=== PATIENT | female | born 1970 | race Caucasian/White ===

== ENCOUNTER 2023-08-16 11:36 | Inpatient (IN) | payer OTHER ==
[2023-08-16 13:15] LABS: HEMATOCRIT 23.4 % (32.4-45.2); HEMOGLOBIN 7.8 GM/dL (10.7-15.3); MCH 34.5 pg (25.7-33.7); MCHC 33.3 g/dl (32.0-36.0); MEAN CELL VOLUME 103.5 fl (80-96); MEAN PLT VOLUME 6.4 fl (7.5-11.1); PLATELET COUNT 227 10^3/uL (134-434); RBC 2.26 M/mm3 (3.60-5.2); RDW 15.8 % (11.6-15.6)
[2023-08-16 13:48] LABS: BLOOD UREA NITROGEN 79.9 mg/dL (7-18)
[2023-08-16 13:52] LABS: BILIRUBIN,TOTAL 0.3 mg/dL (0.2-1)
[2023-08-16 13:53] LABS: TOT PROT 5.3 g/dl (6.4-8.2)
[2023-08-16 13:55] LABS: CREATININE 3.6 mg/dL (0.55-1.3)
[2023-08-16] MEDS ORDERED: VANCOMYCIN 1 GRAM (PRE-DOCKED) 1,000 MG/250 ML BAG IVPB ONE (14:16)
[2023-08-16] MEDS ORDERED: ceFAZolin SODIUM 1 GM VIAL ONE (14:16)
[2023-08-16] MEDS: CEFAZOLIN 1 GM in DEXTROSE 5%-WATER - 50 ML IVPB ONE (14:25)
[2023-08-16 14:40] LABS: ANISOCYTOSIS 1+; MACROCYTOSIS 1+
[2023-08-16] MEDS: VANCOMYCIN 1,000 MG in DEXTROSE 5%-WATER - 250 ML IVPB ONE (14:45)
[2023-08-16] MEDS ORDERED: PIPERACILLIN/TAZOB 2.25 GM 2.25 GM in DEXTROSE 5%-WATER - 50 ML IVPB SCH (16:45)
[2023-08-16 17:16] VITALS: BMI 39.6
[2023-08-16] MEDS: TORSEMIDE 20 MG TABLET (FP) PO SCH (17:50)
[2023-08-16] MEDS: PIPERACILLIN/TAZOB 2.25 GM 2.25 GM in DEXTROSE 5%-WATER - 50 ML IVPB SCH (17:50)
[2023-08-16] MEDS: HEPARIN NA (PORCINE) 5,000 UNITS/ML 1ML VIAL SQ SCH (21:32)
[2023-08-16] MEDS: HALOPERIDOL 5 MG TABLET PO SCH (21:33)
[2023-08-16] MEDS: DIVALPROEX NA *ER* EXTEND REL 500 MG TABLET.SA (FP) PO SCH (21:33)
[2023-08-16] MEDS: lamoTRIgine 25 MG TABLET PO SCH (21:33)
[2023-08-17] MEDS: DIVALPROEX NA *ER* EXTEND REL 500 MG TABLET.SA (FP) PO SCH (06:00)
[2023-08-17] MEDS: SODIUM BICARBONATE 650 MG TABLET PO SCH (06:03)
[2023-08-17 07:45] LABS: HEMATOCRIT 21.5 % (32.4-45.2); HEMOGLOBIN 7.1 GM/dL (10.7-15.3); MCH 34.4 pg (25.7-33.7); MCHC 33.1 g/dl (32.0-36.0); MEAN CELL VOLUME 103.8 fl (80-96); MEAN PLT VOLUME 6.6 fl (7.5-11.1); PLATELET COUNT 235 10^3/uL (134-434); RBC 2.07 M/mm3 (3.60-5.2); RDW 15.8 % (11.6-15.6); RETICULOCYTES 2.58 % (0.5-1.5); WHITE BLOOD COUNT 12.4 K/mm3 (4.0-10.0)
[2023-08-17 07:57] LABS: POTASSIUM 3.1 mmol/L (3.5-5.1)
[2023-08-17 08:00] LABS: ALBUMIN 1.8 g/dl (3.4-5.0); CALCIUM 8.8 mg/dL (8.5-10.1)
[2023-08-17] MEDS ORDERED: VANCOMYCIN HCL 1,500 MG in DEXTROSE 5%-WATER - 500 ML IVPB SCH (08:00)
[2023-08-17 08:03] LABS: PHOSPHOROUS 2.5 mg/dL (2.5-4.9)
[2023-08-17 08:04] LABS: BILIRUBIN,TOTAL 0.4 mg/dL (0.2-1); CREATININE 3.4 mg/dL (0.55-1.3); TOT PROT 4.8 g/dl (6.4-8.2)
[2023-08-17] MEDS: VANCOMYCIN PREMIX 1.5 GM 1,500 MG/300 ML BAG IVPB SCH (08:32)
[2023-08-17 08:59] LABS: ERYTHROCYTE SEDIMENTATION RATE 116 mm/hr (0-30)
[2023-08-17] MEDS: ACETAMINOPHEN 1000 MG/100 ML BAG IVPB ONE ×2 (09:30→15:30)
[2023-08-17] MEDS: POTASSIUM CHLORIDE ORAL LIQUID 20 MEQ/15 ML PO ONE (15:30)
[2023-08-17] MEDS: PIPERACILLIN/TAZOB 2.25 GM 2.25 GM in DEXTROSE 5%-WATER - 50 ML IVPB SCH (17:12)
[2023-08-17] MEDS: FERROUS GLUCONATE 324 MG TAB (FP) PO SCH (17:43)
[2023-08-17] MEDS: EPOETIN ALFA-EPBX 10,000 UNIT/ML VIAL SQ ONE (17:43)
[2023-08-17] MEDS: ACETAMINOPHEN 1000 MG/100 ML BAG IVPB PRN (23:19)
[2023-08-18 07:51] LABS: HEMATOCRIT 20.4 % (32.4-45.2); MCH 35.4 pg (25.7-33.7); MCHC 33.8 g/dl (32.0-36.0); MEAN CELL VOLUME 104.7 fl (80-96); MEAN PLT VOLUME 6.6 fl (7.5-11.1); PLATELET COUNT 243 10^3/uL (134-434); RBC 1.95 M/mm3 (3.60-5.2); RDW 15.5 % (11.6-15.6); WHITE BLOOD COUNT 14.5 K/mm3 (4.0-10.0)
[2023-08-18 08:04] LABS: HEMOGLOBIN 6.9 GM/dL (10.7-15.3)
[2023-08-18 08:11] LABS: POTASSIUM 3.2 mmol/L (3.5-5.1)
[2023-08-18 08:15] LABS: ALBUMIN 1.8 g/dl (3.4-5.0)
[2023-08-18 08:16] LABS: BLOOD UREA NITROGEN 68.6 mg/dL (7-18); CALCIUM 8.6 mg/dL (8.5-10.1)
[2023-08-18 08:18] LABS: CREATININE 3.5 mg/dL (0.55-1.3)
[2023-08-18 08:21] LABS: BILIRUBIN,TOTAL 0.3 mg/dL (0.2-1); TOT PROT 4.8 g/dl (6.4-8.2)
[2023-08-18] MEDS: ALLOPURINOL 100 MG TABLET (FP) PO SCH (09:26)
[2023-08-18] MEDS: CALCITRIOL 0.25 MCG CAPSULE (FP) PO SCH (09:26)
[2023-08-18] MEDS: POTASSIUM CHLORIDE ORAL LIQUID 20 MEQ/15 ML PO ONE ×2 (14:11→21:18)
[2023-08-18] MEDS: VITAMIN B COMP W-C 1 EA TABLET (NEPHRO-VITE) PO SCH (17:02)
[2023-08-18] MEDS: IRON SUCROSE INJECTION 100 MG in SODIUM CHLORIDE 95 ML IVPB ONE (19:54)
[2023-08-19] MEDS: ACETAMINOPHEN 325 MG TABLET (FP) PO ONE (06:53)
[2023-08-19 08:24] LABS: HEMOGLOBIN 9.7 GM/dL (10.7-15.3); MCH 33.6 pg (25.7-33.7); MCHC 33.4 g/dl (32.0-36.0); MEAN CELL VOLUME 100.5 fl (80-96); MEAN PLT VOLUME 6.7 fl (7.5-11.1); PLATELET COUNT 313 10^3/uL (134-434); RBC 2.88 M/mm3 (3.60-5.2); RDW 17.6 % (11.6-15.6); WHITE BLOOD COUNT 21.3 K/mm3 (4.0-10.0)
[2023-08-19 08:35] LABS: POTASSIUM 3.7 mmol/L (3.5-5.1)
[2023-08-19 08:40] LABS: BLOOD UREA NITROGEN 63.3 mg/dL (7-18); CALCIUM 9.4 mg/dL (8.5-10.1)
[2023-08-19 08:43] LABS: CREATININE 3.4 mg/dL (0.55-1.3)
[2023-08-19 08:45] LABS: BILIRUBIN,TOTAL 0.4 mg/dL (0.2-1); TOT PROT 5.5 g/dl (6.4-8.2)
[2023-08-19] MEDS: IRON SUCROSE INJECTION 100 MG in SODIUM CHLORIDE 95 ML IVPB ONE (14:20)
[2023-08-19] MEDS: PIPERACILLIN/TAZOB 3.375 GM 3.375 GM in DEXTROSE 5%-WATER - 50 ML IVPB SCH (17:31)
[2023-08-19] MEDS: VANCOMYCIN/WATER FOR INJ (PEG) 1,000 MG/200 ML BAG IVPB ONE (18:18)
[2023-08-20 09:08] LABS: HEMATOCRIT 25.8 % (32.4-45.2); HEMOGLOBIN 8.5 GM/dL (10.7-15.3); MCH 33.6 pg (25.7-33.7); MEAN CELL VOLUME 101.9 fl (80-96); MEAN PLT VOLUME 6.7 fl (7.5-11.1); PLATELET COUNT 273 10^3/uL (134-434); RBC 2.53 M/mm3 (3.60-5.2); RDW 17.7 % (11.6-15.6); WHITE BLOOD COUNT 16.4 K/mm3 (4.0-10.0)
[2023-08-20 09:22] LABS: POTASSIUM 3.1 mmol/L (3.5-5.1)
[2023-08-20 09:24] LABS: CALCIUM 8.5 mg/dL (8.5-10.1)
[2023-08-20 09:25] LABS: BLOOD UREA NITROGEN 60.2 mg/dL (7-18)
[2023-08-20 09:28] LABS: CREATININE 3.4 mg/dL (0.55-1.3)
[2023-08-20 09:29] LABS: BILIRUBIN,TOTAL 0.3 mg/dL (0.2-1); TOT PROT 4.7 g/dl (6.4-8.2)
[2023-08-20 09:38] LABS: ALBUMIN 1.5 g/dl (3.4-5.0)
[2023-08-20] MEDS: CLINDAMYCIN 900 MG PREMIX IVPB 900 MG/50 ML BAG IVPB SCH (11:27)
[2023-08-20] MEDS: POTASSIUM CHLORIDE ORAL LIQUID 20 MEQ/15 ML PO ONE (16:00)
[2023-08-20 16:33] LABS: PH,URINE 6.5 (5.0-8.0); URINE APPEARANCE CLOUDY; URINE BILIRUBIN NEGATIVE (NEGATIVE); URINE COLOR YELLOW; URINE GLUCOSE (UA) NEGATIVE (NEGATIVE); URINE KETONE NEGATIVE (NEGATIVE); URINE LEUK ESTERASE 2+ (NEGATIVE); URINE NITRITE NEGATIVE (NEGATIVE); URINE PROTEIN NEGATIVE (NEGATIVE); URINE UROBILINOGEN 0.2 mg/dL (0.2-1.0)
[2023-08-20 16:35] LABS: *STOOL FOR OCCULT BLOOD NEGATIVE (NEGATIVE)
[2023-08-20 18:46] LABS: EPI CELLS 7 /uL (0-25.1); HYALINE CASTS 1 /uL (0-3.1); URINE BACTERIA 15 /uL (0-1359); URINE RBC 20 /uL (0-23.9); URINE WBC 32 /uL (0-25.8)
[2023-08-20 18:47] LABS: YEAST FEW (NEGATIVE)
[2023-08-21 08:34] LABS: HEMATOCRIT 26.6 % (32.4-45.2); HEMOGLOBIN 8.8 GM/dL (10.7-15.3); MCH 33.7 pg (25.7-33.7); MEAN CELL VOLUME 102.4 fl (80-96); MEAN PLT VOLUME 6.9 fl (7.5-11.1); PLATELET COUNT 299 10^3/uL (134-434); RDW 16.9 % (11.6-15.6); WHITE BLOOD COUNT 18.9 K/mm3 (4.0-10.0)
[2023-08-21 08:56] LABS: POTASSIUM 3.4 mmol/L (3.5-5.1)
[2023-08-21 09:01] LABS: BLOOD UREA NITROGEN 60.6 mg/dL (7-18)
[2023-08-21 09:02] LABS: ALBUMIN 1.7 g/dl (3.4-5.0); CALCIUM 8.9 mg/dL (8.5-10.1); MAGNESIUM 2.2 mg/dL (1.8-2.4)
[2023-08-21 09:04] LABS: CREATININE 3.5 mg/dL (0.55-1.3)
[2023-08-21 09:06] LABS: BILIRUBIN,TOTAL 0.2 mg/dL (0.2-1); TOT PROT 4.9 g/dl (6.4-8.2)
[2023-08-21] MEDS: ACETAMINOPHEN 1000 MG/100 ML BAG IVPB ONE (09:26)
[2023-08-21] MEDS ORDERED: HALOPERIDOL 5 MG TABLET PO SCH (10:06)
[2023-08-21 10:09] LABS: ANISOCYTOSIS 0; MACROCYTOSIS 1+
[2023-08-21] MEDS ORDERED: KETAMINE HCL 200 MG/20 ML VIAL ONE (12:19)
[2023-08-21] MEDS ORDERED: SUCCINYLCHOLINE CHLORIDE 200 MG/10 ML SYRINGE ONE (12:19)
[2023-08-21] MEDS ORDERED: FENTANYL CITRATE/PF 50 MCG/ML VIAL ONE (12:19)
[2023-08-21] MEDS ORDERED: PROPOFOL 20 ML ONE (12:19)
[2023-08-21] MEDS ORDERED: ONDANSETRON 4 MG/2 ML VIAL ONE ×2 (12:41)
[2023-08-21] MEDS ORDERED: ACETAMINOPHEN 1000 MG/100 ML BAG IVPB PRN (15:00)
[2023-08-21] MEDS: PIPERACILLIN/TAZOB 3.375 GM 3.375 GM in DEXTROSE 5%-WATER - 50 ML IVPB SCH (15:09)
[2023-08-21] MEDS: POTASSIUM CHLORIDE ORAL LIQUID 20 MEQ/15 ML PO ONE ×2 (15:11→15:24)
[2023-08-21] MEDS: CLINDAMYCIN 900 MG PREMIX IVPB 900 MG/50 ML BAG IVPB SCH (18:05)
[2023-08-21] MEDS: ACETAMINOPHEN 1000 MG/100 ML BAG IVPB SCH (20:00)
[2023-08-21] MEDS: HEPARIN NA (PORCINE) 5,000 UNITS/ML 1ML VIAL SQ SCH (21:41)
[2023-08-21] MEDS: HALOPERIDOL 5 MG TABLET PO SCH (21:42)
[2023-08-21] MEDS: DIVALPROEX NA *ER* EXTEND REL 500 MG TABLET.SA (FP) PO SCH (21:42)
[2023-08-21] MEDS: lamoTRIgine 25 MG TABLET PO SCH (21:42)
[2023-08-22] MEDS: SODIUM CHLORIDE 0.9% 500 ML INFUS.BAG IV ONE (00:54)
[2023-08-22] MEDS: TORSEMIDE 20 MG TABLET (FP) PO SCH (05:33)
[2023-08-22] MEDS: DIVALPROEX NA *ER* EXTEND REL 500 MG TABLET.SA (FP) PO SCH (06:14)
[2023-08-22 09:07] LABS: HEMATOCRIT 24.1 % (32.4-45.2); HEMOGLOBIN 7.9 GM/dL (10.7-15.3); MCH 33.9 pg (25.7-33.7); MCHC 32.8 g/dl (32.0-36.0); MEAN CELL VOLUME 103.2 fl (80-96); PLATELET COUNT 299 10^3/uL (134-434); RBC 2.34 M/mm3 (3.60-5.2); RDW 16.7 % (11.6-15.6); WHITE BLOOD COUNT 19.8 K/mm3 (4.0-10.0)
[2023-08-22 09:29] LABS: POTASSIUM 3.7 mmol/L (3.5-5.1)
[2023-08-22 09:41] LABS: ALBUMIN 1.8 g/dl (3.4-5.0)
[2023-08-22 09:44] LABS: BLOOD UREA NITROGEN 55.8 mg/dL (7-18); CALCIUM 8.7 mg/dL (8.5-10.1); CREATININE 3.7 mg/dL (0.55-1.3)
[2023-08-22 09:45] LABS: BILIRUBIN,TOTAL 0.2 mg/dL (0.2-1)
[2023-08-22] MEDS: CALCITRIOL 0.25 MCG CAPSULE (FP) PO SCH (09:54)
[2023-08-22] MEDS: ALLOPURINOL 100 MG TABLET (FP) PO SCH (09:54)
[2023-08-22] MEDS: VITAMIN B COMP W-C 1 EA TABLET (NEPHRO-VITE) PO SCH (09:55)
[2023-08-22] MEDS: FERROUS GLUCONATE 324 MG TAB (FP) PO SCH (09:55)
[2023-08-22] MEDS: oxyCODONE HCL 5 MG TABLET PO PRN (14:31)
[2023-08-23 04:26] VITALS: RESP 18
[2023-08-23] MEDS: ACETAMINOPHEN 1000 MG/100 ML BAG IVPB ONE (16:26)
[2023-08-23] MEDS: ACETAMINOPHEN 325 MG TABLET (FP) PO SCH (22:00)
[2023-08-24 09:16] LABS: MCH 33.6 pg (25.7-33.7); MEAN CELL VOLUME 101.9 fl (80-96); MEAN PLT VOLUME 6.8 fl (7.5-11.1); PLATELET COUNT 291 10^3/uL (134-434); RBC 2.06 M/mm3 (3.60-5.2); RDW 15.6 % (11.6-15.6); WHITE BLOOD COUNT 16.9 K/mm3 (4.0-10.0)
[2023-08-24] MEDS: EPOETIN ALFA-EPBX 10,000 UNIT/ML VIAL SQ ONE (09:19)
[2023-08-24 09:22] LABS: HEMOGLOBIN 6.9 GM/dL (10.7-15.3)
[2023-08-24] MEDS: POVIDONE-IODINE 10% SOLN 118 ML BOTTLE TP ONE (09:45)
[2023-08-24 09:59] LABS: POTASSIUM 3.2 mmol/L (3.5-5.1)
[2023-08-24 09:59] LABS: ERYTHROCYTE SEDIMENTATION RATE 116 mm/hr (0-30)
[2023-08-24 10:10] LABS: CALCIUM 8.8 mg/dL (8.5-10.1)
[2023-08-24 10:11] LABS: ALBUMIN 1.8 g/dl (3.4-5.0); BLOOD UREA NITROGEN 50.7 mg/dL (7-18)
[2023-08-24 10:14] LABS: CREATININE 3.8 mg/dL (0.55-1.3)
[2023-08-24 10:15] LABS: BILIRUBIN,TOTAL 0.2 mg/dL (0.2-1); TOT PROT 4.8 g/dl (6.4-8.2)
[2023-08-24] MEDS: CEFTRIAXONE 2 GM in DEXTROSE 5%-WATER 100 ML IVPB ONE ×2 (14:09→17:03)
[2023-08-24] MEDS: POTASSIUM CHLORIDE ORAL LIQUID 20 MEQ/15 ML PO ONE (14:27)
[2023-08-25 09:52] LABS: HEMATOCRIT 24.5 % (32.4-45.2); HEMOGLOBIN 8.2 GM/dL (10.7-15.3); MCHC 33.5 g/dl (32.0-36.0); MEAN CELL VOLUME 98.6 fl (80-96); MEAN PLT VOLUME 6.8 fl (7.5-11.1); PLATELET COUNT 290 10^3/uL (134-434); RBC 2.49 M/mm3 (3.60-5.2); RDW 18.3 % (11.6-15.6); WHITE BLOOD COUNT 15.9 K/mm3 (4.0-10.0)
[2023-08-25 10:07] LABS: POTASSIUM 3.5 mmol/L (3.5-5.1)
[2023-08-25 10:12] LABS: ALBUMIN 1.8 g/dl (3.4-5.0); BLOOD UREA NITROGEN 46.7 mg/dL (7-18); CALCIUM 9.3 mg/dL (8.5-10.1)
[2023-08-25 10:15] LABS: CREATININE 3.8 mg/dL (0.55-1.3)
[2023-08-25 10:16] LABS: BILIRUBIN,TOTAL 0.2 mg/dL (0.2-1)
[2023-08-25 10:17] LABS: TOT PROT 4.9 g/dl (6.4-8.2)
[2023-08-25] MEDS: CEFTRIAXONE 2 GM in DEXTROSE 5%-WATER 100 ML IVPB SCH (10:36)
[2023-08-25 11:07] LABS: MACROCYTOSIS 1+
[2023-08-26 10:15] LABS: HEMATOCRIT 25.8 % (32.4-45.2); HEMOGLOBIN 8.7 GM/dL (10.7-15.3); MCH 33.5 pg (25.7-33.7); MCHC 33.7 g/dl (32.0-36.0); MEAN CELL VOLUME 99.5 fl (80-96); PLATELET COUNT 297 10^3/uL (134-434); RBC 2.59 M/mm3 (3.60-5.2); RDW 18.3 % (11.6-15.6); WHITE BLOOD COUNT 17.6 K/mm3 (4.0-10.0)
[2023-08-26 10:22] LABS: POTASSIUM 3.2 mmol/L (3.5-5.1)
[2023-08-26 10:26] LABS: BLOOD UREA NITROGEN 40.6 mg/dL (7-18); CALCIUM 9.3 mg/dL (8.5-10.1); MAGNESIUM 2.4 mg/dL (1.8-2.4)
[2023-08-26 10:27] LABS: ALBUMIN 1.9 g/dl (3.4-5.0)
[2023-08-26 10:29] LABS: CREATININE 3.6 mg/dL (0.55-1.3); PHOSPHOROUS 5.7 mg/dL (2.5-4.9)
[2023-08-26 10:31] LABS: BILIRUBIN,TOTAL 0.2 mg/dL (0.2-1)
[2023-08-26] MEDS: POTASSIUM CHLORIDE ORAL LIQUID 20 MEQ/15 ML PO ONE (11:55)
[2023-08-26] MEDS: SEVELAMER CARBONATE 800 MG TAB (FP) PO SCH (11:56)
[2023-08-26 17:09] LABS: FREE KAPPA,SERUM 67.1 mg/L (3.3-19.4)
[2023-08-26] MEDS: oxyCODONE HCL 5 MG TABLET PO PRN (17:20)
[2023-08-27 09:01] LABS: HEMATOCRIT 27.4 % (32.4-45.2); HEMOGLOBIN 9.2 GM/dL (10.7-15.3); MCH 33.9 pg (25.7-33.7); MCHC 33.5 g/dl (32.0-36.0); MEAN CELL VOLUME 101.3 fl (80-96); MEAN PLT VOLUME 6.9 fl (7.5-11.1); PLATELET COUNT 277 10^3/uL (134-434); RDW 18.7 % (11.6-15.6); WHITE BLOOD COUNT 16.6 K/mm3 (4.0-10.0)
[2023-08-27 09:51] LABS: POTASSIUM 3.6 mmol/L (3.5-5.1)
[2023-08-27 10:00] LABS: BLOOD UREA NITROGEN 37.1 mg/dL (7-18)
[2023-08-27 10:01] LABS: CALCIUM 9.7 mg/dL (8.5-10.1)
[2023-08-27 10:02] LABS: ALBUMIN 2.1 g/dl (3.4-5.0)
[2023-08-27 10:03] LABS: CREATININE 3.5 mg/dL (0.55-1.3); MAGNESIUM 2.5 mg/dL (1.8-2.4); PHOSPHOROUS 5.4 mg/dL (2.5-4.9)
[2023-08-27 10:04] LABS: BILIRUBIN,TOTAL 0.2 mg/dL (0.2-1); TOT PROT 5.4 g/dl (6.4-8.2)
[2023-08-27] MEDS: ZINC SULFATE 220 MG CAPSULE (FP) PO SCH (21:37)
[2023-08-28 08:31] LABS: HEMATOCRIT 24.5 % (32.4-45.2); HEMOGLOBIN 8.4 GM/dL (10.7-15.3); MCH 34.4 pg (25.7-33.7); MCHC 34.2 g/dl (32.0-36.0); MEAN CELL VOLUME 100.6 fl (80-96); MEAN PLT VOLUME 7.1 fl (7.5-11.1); PLATELET COUNT 261 10^3/uL (134-434); RBC 2.43 M/mm3 (3.60-5.2); RDW 18.3 % (11.6-15.6); WHITE BLOOD COUNT 12.9 K/mm3 (4.0-10.0)
[2023-08-28 08:51] LABS: POTASSIUM 3.3 mmol/L (3.5-5.1)
[2023-08-28 08:56] LABS: ALBUMIN 1.9 g/dl (3.4-5.0); CALCIUM 9.3 mg/dL (8.5-10.1); MAGNESIUM 2.3 mg/dL (1.8-2.4)
[2023-08-28 08:59] LABS: CREATININE 3.2 mg/dL (0.55-1.3)
[2023-08-28 09:03] LABS: BILIRUBIN,TOTAL 0.2 mg/dL (0.2-1); TOT PROT 4.9 g/dl (6.4-8.2)
[2023-08-28] MEDS: ASCORBIC ACID 500 MG TABLET (FP) PO SCH (09:12)
[2023-08-29 07:58] LABS: HEMATOCRIT 27.2 % (32.4-45.2); MCH 33.9 pg (25.7-33.7); MCHC 33.2 g/dl (32.0-36.0); MEAN CELL VOLUME 102.2 fl (80-96); MEAN PLT VOLUME 7.3 fl (7.5-11.1); PLATELET COUNT 269 10^3/uL (134-434); RBC 2.66 M/mm3 (3.60-5.2); RDW 19.9 % (11.6-15.6)
[2023-08-29 08:26] LABS: POTASSIUM 3.7 mmol/L (3.5-5.1)
[2023-08-29 08:28] LABS: ALBUMIN 2.1 g/dl (3.4-5.0); CALCIUM 9.9 mg/dL (8.5-10.1)
[2023-08-29 08:29] LABS: BLOOD UREA NITROGEN 36.7 mg/dL (7-18)
[2023-08-29 08:32] LABS: CREATININE 3.3 mg/dL (0.55-1.3)
[2023-08-29 08:33] LABS: BILIRUBIN,TOTAL 0.2 mg/dL (0.2-1); TOT PROT 5.2 g/dl (6.4-8.2)
[2023-08-29] MEDS: hydrOXYzine PAMOATE 25 MG CAPSULE (FP) PO ONE (11:19)
[2023-08-29] MEDS: hydrOXYzine PAMOATE 50 MG CAPSULE (FP) PO ONE (12:16)
[2023-08-29 20:27] VITALS: BP 110/55; PULSE 81; TEMP 98.4
== END 2023-08-29 22:45 | DRG 364 ==
LOC: JER 11:36 → JERBED 14:52 → J6S 16:02
PROVIDERS: ADMIT Internal Medicine; ATTEND Internal Medicine
PROC: 0KBP0ZZ Excision of Left Hip Muscle, Open Approach (ICD-10-PCS; principal; 2023-08-22)
PROC: 0KBN0ZZ Excision of Right Hip Muscle, Open Approach (ICD-10-PCS; 2023-08-22)
PROC: 02HV33Z Insertion of Infusion Device into Superior Vena Cava, Percutaneous Approach (ICD-10-PCS; 2023-08-22)
PROC: B518ZZA Fluoroscopy of Superior Vena Cava, Guidance (ICD-10-PCS; 2023-08-22)
DX: L89.150 Pressure ulcer of sacral region, unstageable (principal); R53.2 Functional quadriplegia; F31.9 Bipolar disorder, unspecified; E66.9 Obesity, unspecified; Z68.39 Body mass index [BMI] 39.0-39.9, adult; D63.1 Anemia in chronic kidney disease; M10.9 Gout, unspecified; E87.6 Hypokalemia; N18.5 Chronic kidney disease, stage 5; M46.28 Osteomyelitis of vertebra, sacral and sacrococcygeal region; G47.33 Obstructive sleep apnea (adult) (pediatric); I51.89 Other ill-defined heart diseases; G62.9 Polyneuropathy, unspecified; B96.20 Unspecified Escherichia coli [E. coli] as the cause of diseases classified elsewhere; B96.4 Proteus (mirabilis) (morganii) as the cause of diseases classified elsewhere; H02.402 Unspecified ptosis of left eyelid; E88.09 Other disorders of plasma-protein metabolism, not elsewhere classified; D72.829 Elevated white blood cell count, unspecified
CPT/HCPCS: 36415; 36430; 36569; 70450-TC; 72131-TC; 73590-TC-LT-FY; 80053; 80164; 81003; 82272; 82525; 82550; 82607; 82728; 82746; 83010; 83519; 83540; 83550; 83605; 83615; 83735; 83883; 84100; 84155; 84165; 84439; 84443; 84466; 84630; 85025; 85027; 85045; 85651; 86140; 86850; 86900; 86901; 86922; 87040; 87070; 87186; 87205; 87635; 88300-TC; 88304-TC; 93005; 93010; 93970-TC; 94660; 94760; 97162-GP; 99285-25; G0480; J0131; J1644; J1756; P9038; P9058; Q5106

== ENCOUNTER 2023-10-11 00:33 | Inpatient (IN) | payer OTHER ==
[2023-10-11 02:38] LABS: HEMATOCRIT 29.2 % (32.4-45.2); HEMOGLOBIN 9.6 GM/dL (10.7-15.3); MCH 34.3 pg (25.7-33.7); MEAN PLT VOLUME 7.1 fl (7.5-11.1); PLATELET COUNT 246 10^3/uL (134-434); RBC 2.81 M/mm3 (3.60-5.2); RDW 17.3 % (11.6-15.6); WHITE BLOOD COUNT 18.3 K/mm3 (4.0-10.0)
[2023-10-11 03:06] LABS: POTASSIUM 3.7 mmol/L (3.5-5.1)
[2023-10-11 03:08] LABS: CALCIUM 10.7 mg/dL (8.5-10.1)
[2023-10-11 03:09] LABS: BLOOD UREA NITROGEN 80.3 mg/dL (7-18)
[2023-10-11 03:12] LABS: CREATININE 4.7 mg/dL (0.55-1.3)
[2023-10-11 03:12] LABS: VENOUS BASE EXCESS -14.7 mmol/L (-2-2); VENOUS O2 SATURATION 61.4 % (70-80)
[2023-10-11 03:13] LABS: BILIRUBIN,TOTAL 0.2 mg/dL (0.2-1); TOT PROT 5.3 g/dl (6.4-8.2)
[2023-10-11 03:25] LABS: ANISOCYTOSIS 1+; MACROCYTOSIS 0
[2023-10-11 03:35] LABS: INR 1.03 (0.83-1.09); PROTHROMBIN TIME (PATIENT) 11.6 SEC (9.7-13.0)
[2023-10-11 03:37] LABS: ACTIVATED PTT 30.3 SECONDS (25.2-36.5)
[2023-10-11 03:40] LABS: VENOUS PH 7.162 (7.310-7.410)
[2023-10-11] MEDS ORDERED: PIPERACILLIN/TAZOB 4.5 GM 4.5 GM/100 ML BAG IVPB ONE (03:52)
[2023-10-11] MEDS: PIPERACILLIN/TAZOB 4.5 GM 4.5 GM in DEXTROSE 5%-WATER 100 ML IVPB ONE (04:14)
[2023-10-11] MEDS: VANCOMYCIN 2,000 MG in DEXTROSE 5%-WATER - 500 ML IVPB ONE (05:19)
[2023-10-11] MEDS: VANCOMYCIN/WATER 2 GRAMS 2,000 MG/400 ML PIGGYBACK IVPB ONE (05:20)
[2023-10-11] MEDS ORDERED: PIPERACILLIN/TAZOB 2.25 GM 2.25 GM/50 ML BAG IVPB ONE (08:14)
[2023-10-11] MEDS: PIPERACILLIN/TAZOB 2.25 GM 2.25 GM in DEXTROSE 5%-WATER - 50 ML IVPB SCH ×2 (08:18→22:07)
[2023-10-11] MEDS ORDERED: ACETAMINOPHEN 325 MG TABLET (FP) PO PRN (08:41)
[2023-10-11 09:34] LABS: EPI CELLS 0 /uL (0-25.1); HYALINE CASTS 0 /uL (0-3.1); PH,URINE 5.5 (5.0-8.0); URINE APPEARANCE CLOUDY; URINE BACTERIA >9,000 /uL (0-1359); URINE BILIRUBIN NEGATIVE (NEGATIVE); URINE COLOR YELLOW; URINE GLUCOSE (UA) NEGATIVE (NEGATIVE); URINE KETONE NEGATIVE (NEGATIVE); URINE LEUK ESTERASE 3+ (NEGATIVE); URINE NITRITE NEGATIVE (NEGATIVE); URINE PROTEIN 2+ (NEGATIVE); URINE RBC 168 /uL (0-23.9); URINE UROBILINOGEN 0.2 mg/dL (0.2-1.0); URINE WBC 883 /uL (0-25.8)
[2023-10-11] MEDS: lamoTRIgine 25 MG TABLET PO SCH (11:31)
[2023-10-11] MEDS: DIVALPROEX SODIUM 500 MG TABLET E.C. PO SCH ×2 (11:31→22:05)
[2023-10-11] MEDS: TORSEMIDE 20 MG TABLET (FP) PO SCH (11:31)
[2023-10-11] MEDS ORDERED: COLLAGENASE CLOSTRIDIUM HIST. 30 GRAMS TUBE TP SCH (12:30)
[2023-10-11 14:21] VITALS: BMI 40.6
[2023-10-11 14:46] LABS: ARTERIAL BLD GAS O2 SATURATION 96.8 % (95-98); ARTERIAL BLOOD GAS BASE EXCESS -15.2 mmol/L (-2-2); ARTERIAL BLOOD GAS PO2 106.3 mmHg (80-100); ARTERIAL BLOOD GAS pH 7.201 (7.350-7.450)
[2023-10-11] MEDS: SODIUM CHLORIDE 0.45% 1,000 ML IV SCH (14:50)
[2023-10-11 14:53] LABS: ALLENS TEST POSITIVE
[2023-10-12 08:24] LABS: HEMATOCRIT 31.6 % (32.4-45.2); HEMOGLOBIN 10.2 GM/dL (10.7-15.3); MCHC 32.4 g/dl (32.0-36.0); MEAN CELL VOLUME 105.2 fl (80-96); MEAN PLT VOLUME 7.5 fl (7.5-11.1); PLATELET COUNT 231 10^3/uL (134-434); RBC 3.01 M/mm3 (3.60-5.2); RDW 17.2 % (11.6-15.6); WHITE BLOOD COUNT 11.4 K/mm3 (4.0-10.0)
[2023-10-12 08:27] LABS: ALBUMIN 1.8 g/dl (3.4-5.0); CALCIUM 10.8 mg/dL (8.5-10.1)
[2023-10-12 08:32] LABS: BILIRUBIN,TOTAL 0.2 mg/dL (0.2-1); TOT PROT 5.4 g/dl (6.4-8.2)
[2023-10-12] MEDS ORDERED: SODIUM BICARBONATE 8.4% 50 MEQ/50 ML DISP.SYRIN IVPUSH ONE (11:13)
[2023-10-12] MEDS: SODIUM BICARBONATE 650 MG TABLET PO SCH (13:39)
[2023-10-12] MEDS: LACTATED RINGERS SOLUTION 1,000 ML/1,000 ML INFUS.BAG IV SCH (13:45)
[2023-10-12] MEDS: SODIUM BICARBONATE 8.4% 50 MEQ/50 ML DISP.SYRIN IVPUSH ONE (17:18)
[2023-10-12] MEDS: AMINO ACIDS/PROTEIN HYDROLYS 30 ML LIQUID.PKT PO SCH (17:19)
[2023-10-13] MEDS: MULTIVITAMINS (DAILY MVI) TABLET (FP) PO SCH (10:26)
[2023-10-13] MEDS: ASCORBIC ACID 500 MG TABLET (FP) PO SCH (10:26)
[2023-10-13] MEDS ORDERED: SODIUM CHLORIDE 250 ML IV PRN (12:22)
[2023-10-13 14:24] LABS: HEMATOCRIT 26.5 % (32.4-45.2); HEMOGLOBIN 8.7 GM/dL (10.7-15.3); MCH 34.2 pg (25.7-33.7); MEAN CELL VOLUME 103.7 fl (80-96); MEAN PLT VOLUME 7.8 fl (7.5-11.1); PLATELET COUNT 214 10^3/uL (134-434); RBC 2.55 M/mm3 (3.60-5.2); RDW 17.1 % (11.6-15.6); WHITE BLOOD COUNT 8.2 K/mm3 (4.0-10.0)
[2023-10-13 14:44] LABS: POTASSIUM 3.3 mmol/L (3.5-5.1)
[2023-10-13 14:46] LABS: CALCIUM 11.2 mg/dL (8.5-10.1)
[2023-10-13 14:47] LABS: ALBUMIN 1.6 g/dl (3.4-5.0)
[2023-10-13 14:50] LABS: CREATININE 5.7 mg/dL (0.55-1.3)
[2023-10-13 14:51] LABS: BILIRUBIN,TOTAL 0.2 mg/dL (0.2-1); TOT PROT 4.6 g/dl (6.4-8.2)
[2023-10-13] MEDS: COLLAGENASE CLOSTRIDIUM HIST. 30 GRAMS TUBE TP SCH (17:30)
[2023-10-14] MEDS ORDERED: SODIUM CHLORIDE 250 ML IV PRN (14:50)
[2023-10-14] MEDS: VALPROATE SODIUM 250 MG/5 ML UNIT DOSE CUP NGT SCH (15:09)
[2023-10-14] MEDS: HEPARIN NA (PORCINE) 5,000 UNITS/ML 1ML VIAL IVPUSH ONE (15:15)
[2023-10-14 15:26] LABS: HEMATOCRIT 24.6 % (32.4-45.2); HEMOGLOBIN 8.2 GM/dL (10.7-15.3); MCH 34.3 pg (25.7-33.7); MCHC 33.4 g/dl (32.0-36.0); MEAN CELL VOLUME 102.5 fl (80-96); MEAN PLT VOLUME 7.4 fl (7.5-11.1); PLATELET COUNT 164 10^3/uL (134-434); WHITE BLOOD COUNT 7.4 K/mm3 (4.0-10.0)
[2023-10-14 15:53] LABS: POTASSIUM 3.1 mmol/L (3.5-5.1)
[2023-10-14 15:55] LABS: CALCIUM 9.9 mg/dL (8.5-10.1)
[2023-10-14 15:56] LABS: ALBUMIN 1.5 g/dl (3.4-5.0)
[2023-10-14 15:59] LABS: CREATININE 4.2 mg/dL (0.55-1.3)
[2023-10-14 16:00] LABS: BILIRUBIN,TOTAL 0.2 mg/dL (0.2-1); TOT PROT 4.4 g/dl (6.4-8.2)
[2023-10-14] MEDS: EPOETIN ALFA-EPBX 10,000 UNIT/ML VIAL SQ ONE (16:04)
[2023-10-14 16:10] LABS: BLOOD UREA NITROGEN 71.4 mg/dL (7-18)
[2023-10-14] MEDS: AMINO ACIDS/PROTEIN HYDROLYS 30 ML LIQUID.PKT NGT SCH (18:00)
[2023-10-14] MEDS: lamoTRIgine 25 MG TABLET NGT SCH (23:55)
[2023-10-15] MEDS ORDERED: SODIUM CHLORIDE 250 ML IV PRN (11:20)
[2023-10-16 10:28] LABS: MCHC 33.3 g/dl (32.0-36.0); MEAN CELL VOLUME 102.2 fl (80-96); MEAN PLT VOLUME 7.8 fl (7.5-11.1); PLATELET COUNT 128 10^3/uL (134-434); RBC 2.35 M/mm3 (3.60-5.2); RDW 17.5 % (11.6-15.6); WHITE BLOOD COUNT 9.6 K/mm3 (4.0-10.0)
[2023-10-16 10:33] LABS: CHLORIDE 112 mmol/L (98-107); SODIUM 146 mmol/L (136-145)
[2023-10-16 10:42] LABS: BLOOD UREA NITROGEN 55.8 mg/dL (7-18)
[2023-10-16 10:48] LABS: CALCIUM 9.3 mg/dL (8.5-10.1); CO2 26 mmol/L (21-32)
[2023-10-16 10:49] LABS: GLUCOSE,RANDOM 120 mg/dL (74-106)
[2023-10-16 10:50] LABS: ALBUMIN 1.8 g/dl (3.4-5.0)
[2023-10-16 10:51] LABS: SGPT/ALT 25 U/L (13-61)
[2023-10-16 10:52] LABS: CREATININE 3.6 mg/dL (0.55-1.3)
[2023-10-16 10:53] LABS: BILIRUBIN,TOTAL 0.3 mg/dL (0.2-1); SGOT/AST 33 U/L (15-37)
[2023-10-16 10:54] LABS: ALK PHOS 79 U/L (45-117); TOT PROT 4.6 g/dl (6.4-8.2)
[2023-10-16 11:05] LABS: ANION GAP 8 mmol/L (4-13); POTASSIUM 2.4 mmol/L (3.5-5.1)
[2023-10-16] MEDS: POTASSIUM CHLORIDE ORAL LIQUID 20 MEQ/15 ML GT SCH (13:21)
[2023-10-16] MEDS: EPOETIN ALFA-EPBX 10,000 UNIT/ML VIAL IVPUSH ONE (13:28)
[2023-10-16] MEDS: HEPARIN NA (PORCINE) 5,000 UNITS/ML 1ML VIAL IVPUSH ONE (13:28)
[2023-10-16] MEDS: KCL 10 MEQ IVPB 10 MEQ/100 ML INFUS.BAG IVPB SCH ×2 (13:47→15:38)
[2023-10-16] MEDS: ACETAMINOPHEN 650 MG/20.3 ML ORAL SOLUTION (CUPS) NGT PRN (23:31)
[2023-10-17] MEDS: VITAMIN B COMP W-C 1 EA TABLET (NEPHRO-VITE) PO SCH (09:28)
[2023-10-17 10:01] LABS: POTASSIUM 3.5 mmol/L (3.5-5.1)
[2023-10-17 10:09] LABS: ALBUMIN 1.9 g/dl (3.4-5.0); BLOOD UREA NITROGEN 33.3 mg/dL (7-18); CALCIUM 9.5 mg/dL (8.5-10.1)
[2023-10-17 10:10] LABS: BILIRUBIN,TOTAL 0.3 mg/dL (0.2-1); TOT PROT 4.7 g/dl (6.4-8.2)
[2023-10-17 10:12] LABS: CREATININE 2.8 mg/dL (0.55-1.3)
[2023-10-17] MEDS ORDERED: ACETAMINOPHEN 650 MG/20.3 ML ORAL SOLUTION (CUPS) PO PRN (10:49)
[2023-10-17] MEDS: DIVALPROEX SODIUM 500 MG TABLET E.C. PO SCH (11:48)
[2023-10-17] MEDS: lamoTRIgine 25 MG TABLET PO SCH (11:48)
[2023-10-17] MEDS ORDERED: PAPAVERINE HCL 30 MG/1 ML 10 ML VIAL NR ONE (13:10)
[2023-10-17] MEDS ORDERED: HEPARIN NA (PORCINE) 5,000 UNITS/ML 1ML VIAL ONE (13:10)
[2023-10-17] MEDS ORDERED: LIDOCAINE HCL 1%, 10 MG/ML (20ML VIAL) ONE (13:10)
[2023-10-17] MEDS: AMINO ACIDS/PROTEIN HYDROLYS 30 ML LIQUID.PKT PO SCH (18:19)
[2023-10-17] MEDS: POTASSIUM CHLORIDE ORAL LIQUID 20 MEQ/15 ML PO SCH (22:14)
[2023-10-18 08:42] LABS: POTASSIUM 3.5 mmol/L (3.5-5.1)
[2023-10-18 08:45] LABS: CALCIUM 8.8 mg/dL (8.5-10.1)
[2023-10-18 08:46] LABS: ALBUMIN 1.7 g/dl (3.4-5.0); BLOOD UREA NITROGEN 39.2 mg/dL (7-18)
[2023-10-18 08:49] LABS: CREATININE 3.2 mg/dL (0.55-1.3)
[2023-10-18 08:51] LABS: BILIRUBIN,TOTAL 0.2 mg/dL (0.2-1); TOT PROT 4.6 g/dl (6.4-8.2)
[2023-10-18 12:42] LABS: HEMATOCRIT 25.4 % (32.4-45.2); HEMOGLOBIN 7.9 GM/dL (10.7-15.3); MCH 32.6 pg (25.7-33.7); MCHC 31.1 g/dl (32.0-36.0); MEAN CELL VOLUME 104.7 fl (80-96); PLATELET COUNT 158 10^3/uL (134-434); RBC 2.43 M/mm3 (3.60-5.2); RDW 17.3 % (11.6-15.6); WHITE BLOOD COUNT 14.9 K/mm3 (4.0-10.0)
[2023-10-18] MEDS ORDERED: LIDOCAINE HCL 1%, 10 MG/ML (20ML VIAL) ONE (16:20)
[2023-10-18] MEDS ORDERED: PROPOFOL 20 ML ONE (18:17)
[2023-10-18] MEDS ORDERED: MIDAZOLAM HCL 2 MG/2 ML SINGLE DOSE VIAL ONE (18:17)
[2023-10-18] MEDS ORDERED: ceFAZolin SODIUM 1 GM VIAL ONE (18:31)
[2023-10-18] MEDS: ceFAZolin SODIUM 1 GM VIAL IVPB ONE (18:32)
[2023-10-18] MEDS: LIDOCAINE HCL 1%, 10 MG/ML (20ML VIAL) INF ONE (18:51)
[2023-10-18] MEDS ORDERED: ONDANSETRON 4 MG/2 ML VIAL IVPUSH PRN (19:05)
[2023-10-18] MEDS ORDERED: DIVALPROEX NA *ER* EXTEND REL 500 MG TABLET.SA (FP) PO SCH (22:00)
[2023-10-18] MEDS: DIVALPROEX NA *ER* EXTEND REL 500 MG TABLET.SA (FP) PO SCH (22:04)
[2023-10-18] MEDS: lamoTRIgine 25 MG TABLET PO SCH (22:05)
[2023-10-18] MEDS: POTASSIUM CHLORIDE ORAL LIQUID 20 MEQ/15 ML PO SCH (22:05)
[2023-10-18] MEDS: LACTATED RINGERS SOLUTION 1,000 ML/1,000 ML INFUS.BAG IV SCH (22:05)
[2023-10-19] MEDS ORDERED: VALPROATE SODIUM 500 MG/5 ML VIAL IVPB ONE (05:10)
[2023-10-19] MEDS: VALPROATE SODIUM INJECTION 750 MG in SODIUM CHLORIDE 100 ML IVPB ONE (07:02)
[2023-10-19] MEDS: ACETAMINOPHEN 650 MG/20.3 ML ORAL SOLUTION (CUPS) PO PRN (10:00)
[2023-10-19] MEDS: AMINO ACIDS/PROTEIN HYDROLYS 30 ML LIQUID.PKT PO SCH (10:22)
[2023-10-19] MEDS: VITAMIN B COMP W-C 1 EA TABLET (NEPHRO-VITE) PO SCH (10:22)
[2023-10-19] MEDS: DIVALPROEX SODIUM 500 MG TABLET E.C. PO SCH (10:22)
[2023-10-19 12:28] LABS: HEMATOCRIT 24.7 % (32.4-45.2); HEMOGLOBIN 7.8 GM/dL (10.7-15.3); MCHC 31.7 g/dl (32.0-36.0); MEAN PLT VOLUME 8.1 fl (7.5-11.1); PLATELET COUNT 242 10^3/uL (134-434); RBC 2.37 M/mm3 (3.60-5.2); WHITE BLOOD COUNT 22.6 K/mm3 (4.0-10.0)
[2023-10-19 12:47] LABS: POTASSIUM 3.1 mmol/L (3.5-5.1)
[2023-10-19 12:50] LABS: ALBUMIN 1.7 g/dl (3.4-5.0)
[2023-10-19 12:52] LABS: BLOOD UREA NITROGEN 42.9 mg/dL (7-18); CALCIUM 8.4 mg/dL (8.5-10.1)
[2023-10-19 12:53] LABS: CREATININE 3.9 mg/dL (0.55-1.3)
[2023-10-19 12:54] LABS: BILIRUBIN,TOTAL 0.3 mg/dL (0.2-1)
[2023-10-19 12:55] LABS: TOT PROT 4.5 g/dl (6.4-8.2)
[2023-10-19] MEDS: COLLAGENASE CLOSTRIDIUM HIST. 30 GRAMS TUBE TP SCH (13:14)
[2023-10-20] MEDS: HEPARIN NA (PORCINE) 5,000 UNITS/ML 1ML VIAL IVPUSH ONE (09:00)
[2023-10-20] MEDS ORDERED: SODIUM CHLORIDE 250 ML IV PRN (09:00)
[2023-10-20 09:31] LABS: HEMATOCRIT 20.7 % (32.4-45.2); MCH 33.7 pg (25.7-33.7); MCHC 32.8 g/dl (32.0-36.0); MEAN CELL VOLUME 102.9 fl (80-96); MEAN PLT VOLUME 7.5 fl (7.5-11.1); PLATELET COUNT 254 10^3/uL (134-434); RBC 2.01 M/mm3 (3.60-5.2); RDW 17.2 % (11.6-15.6); WHITE BLOOD COUNT 16.4 K/mm3 (4.0-10.0)
[2023-10-20 09:36] LABS: HEMOGLOBIN 6.8 GM/dL (10.7-15.3)
[2023-10-20] MEDS: EPOETIN ALFA-EPBX 10,000 UNIT/ML VIAL IVPUSH ONE (11:17)
[2023-10-20 13:38] LABS: ALBUMIN 1.5 g/dl (3.4-5.0); BILIRUBIN,TOTAL 0.2 mg/dL (0.2-1); BLOOD UREA NITROGEN 42.4 mg/dL (7-18); CALCIUM 8.2 mg/dL (8.5-10.1); CREATININE 3.9 mg/dL (0.55-1.3); POTASSIUM 3.4 mmol/L (3.5-5.1); TOT PROT 4.3 g/dl (6.4-8.2)
[2023-10-20] MEDS: ACETAMINOPHEN 1000 MG/100 ML BAG IVPB ONE (15:08)
[2023-10-21 07:47] LABS: HEMATOCRIT 25.5 % (32.4-45.2); HEMOGLOBIN 8.5 GM/dL (10.7-15.3); MCH 33.2 pg (25.7-33.7); MCHC 33.3 g/dl (32.0-36.0); MEAN CELL VOLUME 99.7 fl (80-96); MEAN PLT VOLUME 7.6 fl (7.5-11.1); PLATELET COUNT 298 10^3/uL (134-434); RBC 2.56 M/mm3 (3.60-5.2); RDW 18.3 % (11.6-15.6); WHITE BLOOD COUNT 22.4 K/mm3 (4.0-10.0)
[2023-10-21 07:59] LABS: POTASSIUM 3.3 mmol/L (3.5-5.1)
[2023-10-21 08:05] LABS: ALBUMIN 1.7 g/dl (3.4-5.0); CALCIUM 8.5 mg/dL (8.5-10.1)
[2023-10-21 08:06] LABS: BLOOD UREA NITROGEN 25.6 mg/dL (7-18)
[2023-10-21 08:09] LABS: CREATININE 2.8 mg/dL (0.55-1.3)
[2023-10-21 08:10] LABS: BILIRUBIN,TOTAL 0.4 mg/dL (0.2-1); TOT PROT 4.5 g/dl (6.4-8.2)
[2023-10-21 10:40] LABS: ANISOCYTOSIS 0; MACROCYTOSIS 0
[2023-10-21] MEDS: POTASSIUM CHLORIDE ORAL LIQUID 20 MEQ/15 ML PO SCH (11:25)
[2023-10-21] MEDS: MINERAL OIL/PET HY-PHL TOPICAL OINTMENT 454 GM JAR TP PRN (11:27)
[2023-10-21] MEDS: CASPOFUNGIN ACETATE 70 MG in SODIUM CHLORIDE 250 ML IVPB ONE (22:54)
[2023-10-22] MEDS: CASPOFUNGIN ACETATE 50 MG in SODIUM CHLORIDE 250 ML IVPB SCH (11:53)
[2023-10-23 08:45] LABS: BASO % 0.3 % (0-2.0); EOS % 1.9 % (0-4.5); HEMATOCRIT 23.7 % (32.4-45.2); HEMOGLOBIN 7.8 GM/dL (10.7-15.3); LYMPH % 11.4 % (8-40); MCH 33.6 pg (25.7-33.7); MEAN CELL VOLUME 101.8 fl (80-96); MEAN PLT VOLUME 7.3 fl (7.5-11.1); MONO % 8.5 % (3.8-10.2); NEUT % 77.9 % (42.8-82.8); PLATELET COUNT 318 10^3/uL (134-434); RBC 2.33 M/mm3 (3.60-5.2); RDW 18.3 % (11.6-15.6); WHITE BLOOD COUNT 19.2 K/mm3 (4.0-10.0)
[2023-10-23 08:59] LABS: POTASSIUM 3.8 mmol/L (3.5-5.1)
[2023-10-23 09:04] LABS: ALBUMIN 1.6 g/dl (3.4-5.0); CALCIUM 8.4 mg/dL (8.5-10.1)
[2023-10-23 09:05] LABS: BLOOD UREA NITROGEN 30.2 mg/dL (7-18)
[2023-10-23 09:08] LABS: CREATININE 3.7 mg/dL (0.55-1.3)
[2023-10-23 09:09] LABS: BILIRUBIN,TOTAL 0.2 mg/dL (0.2-1); TOT PROT 4.4 g/dl (6.4-8.2)
[2023-10-23] MEDS ORDERED: SODIUM CHLORIDE 250 ML IV PRN (09:51)
[2023-10-23] MEDS: EPOETIN ALFA-EPBX 4,000 UNIT/ML VIAL IVPUSH ONE (11:25)
[2023-10-24] MEDS ORDERED: SODIUM CHLORIDE 250 ML IV PRN (13:00)
[2023-10-24] MEDS: FERROUS GLUCONATE 324 MG TAB (FP) PO SCH (18:16)
[2023-10-25 09:41] LABS: HEMATOCRIT 24.3 % (32.4-45.2); HEMOGLOBIN 7.8 GM/dL (10.7-15.3); MCHC 32.2 g/dl (32.0-36.0); MEAN CELL VOLUME 102.5 fl (80-96); MEAN PLT VOLUME 7.5 fl (7.5-11.1); PLATELET COUNT 313 10^3/uL (134-434); RBC 2.37 M/mm3 (3.60-5.2); RDW 18.7 % (11.6-15.6); WHITE BLOOD COUNT 12.8 K/mm3 (4.0-10.0)
[2023-10-25 10:05] LABS: POTASSIUM 4.4 mmol/L (3.5-5.1)
[2023-10-25 10:08] LABS: CALCIUM 8.6 mg/dL (8.5-10.1)
[2023-10-25 10:09] LABS: BLOOD UREA NITROGEN 27.5 mg/dL (7-18)
[2023-10-25 10:12] LABS: CREATININE 3.3 mg/dL (0.55-1.3)
[2023-10-25] MEDS: EPOETIN ALFA-EPBX 10,000 UNIT/ML VIAL IVPUSH ONE (11:19)
[2023-10-26] MEDS: SODIUM CHLORIDE 500 ML IV STA (10:00)
[2023-10-26] MEDS: SODIUM CHLORIDE 1,000 ML IV SCH (14:48)
[2023-10-26] MEDS: VANCOMYCIN/WATER FOR INJ (PEG) 1,000 MG/200 ML BAG IVPB ONE (20:19)
[2023-10-26] MEDS: ERTAPENEM SODIUM 0.5 GM in SODIUM CHLORIDE 50 ML IVPB ONE (21:15)
[2023-10-27] MEDS ORDERED: SODIUM CHLORIDE 250 ML IV PRN (08:41)
[2023-10-27] MEDS: EPOETIN ALFA-EPBX 10,000 UNIT/ML VIAL IVPUSH ONE (10:06)
[2023-10-27 10:10] LABS: MCH 33.3 pg (25.7-33.7); MCHC 32.5 g/dl (32.0-36.0); MEAN CELL VOLUME 102.6 fl (80-96); MEAN PLT VOLUME 7.7 fl (7.5-11.1); PLATELET COUNT 208 10^3/uL (134-434); RBC 2.05 M/mm3 (3.60-5.2); RDW 17.9 % (11.6-15.6); WHITE BLOOD COUNT 20.9 K/mm3 (4.0-10.0)
[2023-10-27 10:20] LABS: HEMOGLOBIN 6.8 GM/dL (10.7-15.3)
[2023-10-27 10:32] LABS: CHLORIDE 109 mmol/L (98-107); SODIUM 141 mmol/L (136-145)
[2023-10-27 10:34] LABS: BLOOD UREA NITROGEN 21.8 mg/dL (7-18); CALCIUM 7.7 mg/dL (8.5-10.1)
[2023-10-27 10:35] LABS: CO2 23 mmol/L (21-32); GLUCOSE,RANDOM 83 mg/dL (74-106)
[2023-10-27 10:37] LABS: ALBUMIN 1.1 g/dl (3.4-5.0); ANION GAP 9 mmol/L (4-13); POTASSIUM 2.9 mmol/L (3.5-5.1); SGPT/ALT 7 U/L (13-61)
[2023-10-27 10:38] LABS: CREATININE 3.1 mg/dL (0.55-1.3); SGOT/AST 8 U/L (15-37)
[2023-10-27 10:39] LABS: BILIRUBIN,TOTAL 0.2 mg/dL (0.2-1); TOT PROT 3.7 g/dl (6.4-8.2)
[2023-10-27 10:41] LABS: ALK PHOS 62 U/L (45-117)
[2023-10-27] MEDS: POTASSIUM CHLORIDE ORAL LIQUID 20 MEQ/15 ML PO SCH (15:50)
[2023-10-27] MEDS: SODIUM CHLORIDE 500 ML IV STA (22:58)
[2023-10-28] MEDS ORDERED: BENZOCAINE/MENTHOL 1 EACH LOZENGE MM PRN (09:41)
[2023-10-28 15:20] LABS: BASO % 0.3 % (0-2.0); EOS % 1.1 % (0-4.5); HEMATOCRIT 27.4 % (32.4-45.2); LYMPH % 18.8 % (8-40); MCHC 32.8 g/dl (32.0-36.0); MEAN CELL VOLUME 100.3 fl (80-96); MEAN PLT VOLUME 8.1 fl (7.5-11.1); NEUT % 71.8 % (42.8-82.8); PLATELET COUNT 195 10^3/uL (134-434); RBC 2.73 M/mm3 (3.60-5.2); RDW 20.5 % (11.6-15.6); WHITE BLOOD COUNT 10.1 K/mm3 (4.0-10.0)
[2023-10-28 15:40] LABS: POTASSIUM 3.3 mmol/L (3.5-5.1)
[2023-10-28 15:46] LABS: ALBUMIN 1.3 g/dl (3.4-5.0); BLOOD UREA NITROGEN 19.2 mg/dL (7-18); CREATININE 2.6 mg/dL (0.55-1.3)
[2023-10-28 15:47] LABS: BILIRUBIN,TOTAL 0.2 mg/dL (0.2-1); TOT PROT 4.3 g/dl (6.4-8.2)
[2023-10-29] MEDS: guaiFENesin 200 MG/10 ML 10 ML UNIT-DOSE CUPS PO PRN (13:27)
[2023-10-30] MEDS ORDERED: SODIUM CHLORIDE 250 ML IV PRN (11:31)
[2023-10-30] MEDS: HEPARIN NA (PORCINE) 5,000 UNITS/ML 1ML VIAL IVPUSH ONE (17:12)
[2023-10-30 17:30] LABS: HEMATOCRIT 21.8 % (32.4-45.2); HEMOGLOBIN 7.2 GM/dL (10.7-15.3); MCH 32.2 pg (25.7-33.7); MEAN CELL VOLUME 97.6 fl (80-96); MEAN PLT VOLUME 7.6 fl (7.5-11.1); PLATELET COUNT 212 10^3/uL (134-434); RBC 2.23 M/mm3 (3.60-5.2); RDW 18.7 % (11.6-15.6); WHITE BLOOD COUNT 5.4 K/mm3 (4.0-10.0)
[2023-10-30 17:54] LABS: ALBUMIN 1.3 g/dl (3.4-5.0); BLOOD UREA NITROGEN 29.5 mg/dL (7-18)
[2023-10-30 17:57] LABS: CREATININE 3.5 mg/dL (0.55-1.3)
[2023-10-30 17:59] LABS: BILIRUBIN,TOTAL 0.3 mg/dL (0.2-1); TOT PROT 3.7 g/dl (6.4-8.2)
[2023-10-30] MEDS: EPOETIN ALFA-EPBX 10,000 UNIT/ML VIAL SQ ONE (18:01)
[2023-10-31 07:06] VITALS: BP 124/66; PULSE 99; RESP 20; TEMP 97.5
== END 2023-10-31 11:20 | DRG 463 ==
LOC: JER 00:33 → JERBED 05:58 → J7W 09:45
PROVIDERS: ADMIT Internal Medicine; ATTEND Internal Medicine
PROC: 5A1D70Z Performance of Urinary Filtration, Intermittent, Less than 6 Hours Per Day (ICD-10-PCS; 2023-10-13)
PROC: 0D9670Z Drainage of Stomach with Drainage Device, Via Natural or Artificial Opening (ICD-10-PCS; 2023-10-16)
PROC: 5A1D70Z Performance of Urinary Filtration, Intermittent, Less than 6 Hours Per Day (ICD-10-PCS; 2023-10-16)
PROC: 3E0G76Z Introduction of Nutritional Substance into Upper GI, Via Natural or Artificial Opening (ICD-10-PCS; 2023-10-16)
PROC: 06PYX3Z Removal of Infusion Device from Lower Vein, External Approach (ICD-10-PCS; 2023-10-17)
PROC: 05HM33Z Insertion of Infusion Device into Right Internal Jugular Vein, Percutaneous Approach (ICD-10-PCS; 2023-10-18)
PROC: B513ZZA Fluoroscopy of Right Jugular Veins, Guidance (ICD-10-PCS; 2023-10-18)
PROC: 0JH63XZ Insertion of Tunneled Vascular Access Device into Chest Subcutaneous Tissue and Fascia, Percutaneous Approach (ICD-10-PCS; principal; 2023-10-18 17:00)
PROC: 5A1D70Z Performance of Urinary Filtration, Intermittent, Less than 6 Hours Per Day (ICD-10-PCS; 2023-10-20)
PROC: 30233N1 Transfusion of Nonautologous Red Blood Cells into Peripheral Vein, Percutaneous Approach (ICD-10-PCS; 2023-10-20)
PROC: 5A1D70Z Performance of Urinary Filtration, Intermittent, Less than 6 Hours Per Day (ICD-10-PCS; 2023-10-23)
PROC: 5A1D70Z Performance of Urinary Filtration, Intermittent, Less than 6 Hours Per Day (ICD-10-PCS; 2023-10-25)
PROC: 5A1D70Z Performance of Urinary Filtration, Intermittent, Less than 6 Hours Per Day (ICD-10-PCS; 2023-10-30)
DX: N39.0 Urinary tract infection, site not specified (principal); J96.01 Acute respiratory failure with hypoxia; G93.41 Metabolic encephalopathy; N17.9 Acute kidney failure, unspecified; B49 Unspecified mycosis; L89.154 Pressure ulcer of sacral region, stage 4; I12.0 Hypertensive chronic kidney disease with stage 5 chronic kidney disease or end stage renal disease; E87.20 Acidosis, unspecified; L89.616 Pressure-induced deep tissue damage of right heel; E66.01 Morbid (severe) obesity due to excess calories; L89.626 Pressure-induced deep tissue damage of left heel; N18.6 End stage renal disease; E83.52 Hypercalcemia; Z68.41 Body mass index [BMI] 40.0-44.9, adult; T82.898A Other specified complication of vascular prosthetic devices, implants and grafts, initial encounter; Y83.8 Other surgical procedures as the cause of abnormal reaction of the patient, or of later complication, without mention of misadventure at the time of the procedure; F31.9 Bipolar disorder, unspecified; D64.9 Anemia, unspecified; R50.9 Fever, unspecified; J44.9 Chronic obstructive pulmonary disease, unspecified; R26.2 Difficulty in walking, not elsewhere classified; R00.0 Tachycardia, unspecified; M10.9 Gout, unspecified; L08.9 Local infection of the skin and subcutaneous tissue, unspecified; B96.20 Unspecified Escherichia coli [E. coli] as the cause of diseases classified elsewhere
CPT/HCPCS: 36415; 36430; 36600; 70450-TC; 71045-TC-FY; 76000-TC-FY; 76775-TC; 80048; 80053; 81003; 82803; 83605; 83735; 84484; 85025; 85027; 85610; 85730; 86704; 86803; 86850; 86900; 86901; 86922; 87040; 87070; 87077; 87086; 87106; 87186; 87205; 87340; 87517; 93005; 93010; 93306-TC; 94760; 97116-GP; 97162-GP; 99285-25; C1750; E0186; G0480; J0131; J0637; J1644; P9038; P9058; Q5106

== ENCOUNTER 2023-11-27 07:40 | Inpatient (IN) | payer OTHER ==
[2023-11-27 08:05] VITALS: BMI 49.9
[2023-11-27 08:29] LABS: VENOUS BASE EXCESS -2.8 mmol/L (-2-2); VENOUS O2 SATURATION 70.1 % (70-80); VENOUS PCO2 44.4 mmHg (38-52); VENOUS PH 7.332 (7.310-7.410)
[2023-11-27 08:30] LABS: HEMATOCRIT 23.7 % (32.4-45.2); HEMOGLOBIN 7.8 GM/dL (10.7-15.3); MCH 34.7 pg (25.7-33.7); MCHC 32.8 g/dl (32.0-36.0); MEAN CELL VOLUME 105.9 fl (80-96); RBC 2.23 M/mm3 (3.60-5.2); RDW 21.6 % (11.6-15.6); WHITE BLOOD COUNT 9.7 K/mm3 (4.0-10.0)
[2023-11-27 08:36] LABS: PLATELET COUNT 53 10^3/uL (134-434)
[2023-11-27 08:37] LABS: INR 1.15 (0.83-1.09); PROTHROMBIN TIME (PATIENT) 13.2 SEC (9.7-13.0)
[2023-11-27 08:49] LABS: CHLORIDE 99 mmol/L (98-107); SODIUM 134 mmol/L (136-145)
[2023-11-27 08:51] LABS: CALCIUM 9.1 mg/dL (8.5-10.1); POTASSIUM 2.8 mmol/L (3.5-5.1)
[2023-11-27 08:52] LABS: ALBUMIN 0.9 g/dl (3.4-5.0); ANION GAP 14 mmol/L (4-13); BLOOD UREA NITROGEN 38.4 mg/dL (7-18); CO2 21 mmol/L (21-32); GLUCOSE,RANDOM 88 mg/dL (74-106); MAGNESIUM 1.8 mg/dL (1.8-2.4)
[2023-11-27 08:54] LABS: ACTIVATED PTT 16.6 SECONDS (25.2-36.5)
[2023-11-27 08:55] LABS: CREATININE 4.7 mg/dL (0.55-1.3); SGOT/AST 35 U/L (15-37); SGPT/ALT 17 U/L (13-61)
[2023-11-27 08:56] LABS: BILIRUBIN,TOTAL 0.3 mg/dL (0.2-1); TOT PROT 3.5 g/dl (6.4-8.2)
[2023-11-27 08:58] LABS: ALK PHOS 135 U/L (45-117)
[2023-11-27] MEDS ORDERED: VANCOMYCIN 1,000 MG in DEXTROSE 5%-WATER - 250 ML IVPB ONE (09:02)
[2023-11-27] MEDS ORDERED: MEROPENEM 1 GM in DEXTROSE 5%-WATER 100 ML IVPB ONE (09:02)
[2023-11-27] MEDS: SODIUM CHLORIDE 0.9% 500 ML INFUS.BAG IV ONE ×2 (09:07→09:11)
[2023-11-27] MEDS ORDERED: MEROPENEM 1 GM VIAL (RESTRICTED TO ID) IVPB ONE (09:15)
[2023-11-27] MEDS ORDERED: KCL 10 MEQ IVPB 10 MEQ/100 ML INFUS.BAG IVPB ONE (09:15)
[2023-11-27] MEDS ORDERED: VANCOMYCIN 1 GRAM (PRE-DOCKED) 1,000 MG/250 ML BAG IVPB ONE (09:15)
[2023-11-27 09:35] LABS: ANISOCYTOSIS 1+; MACROCYTOSIS 1+
[2023-11-27] MEDS: NOREPINEPHRINE BITARTRATE 4,000 MCG in DEXTROSE 5%-WATER - 496 ML IV SCH (09:44)
[2023-11-27] MEDS ORDERED: VASopressin 40 UNITS/100 ML BAG IV SCH (10:30)
[2023-11-27] MEDS ORDERED: LACTATED RINGERS SOLUTION 1,000 ML/1,000 ML INFUS.BAG IV SCH (11:00)
[2023-11-27] MEDS: SODIUM CHLORIDE 0.9% 1000 ML INFUS.BAG IV ONE (11:00)
[2023-11-27 11:11] LABS: EPI CELLS >36 /uL (0-25.1); HYALINE CASTS 3 /uL (0-3.1); URINE APPEARANCE CLOUDY; URINE BACTERIA 3820 /uL (0-1359); URINE BILIRUBIN NEGATIVE (NEGATIVE); URINE COLOR YELLOW; URINE GLUCOSE (UA) NEGATIVE (NEGATIVE); URINE KETONE TRACE (NEGATIVE); URINE LEUK ESTERASE TRACE (NEGATIVE); URINE NITRITE POSITIVE (NEGATIVE); URINE PROTEIN 3+ (NEGATIVE); URINE RBC 169 /uL (0-23.9); URINE UROBILINOGEN 0.2 mg/dL (0.2-1.0); URINE WBC 84 /uL (0-25.8)
[2023-11-27] MEDS: VASopressin 40 UNITS/100 ML BAG IV SCH (12:20)
[2023-11-27] MEDS: KCL 10 MEQ IVPB 10 MEQ/100 ML INFUS.BAG IVPB SCH (12:30)
[2023-11-27 12:50] VITALS: BP 74/22; RESP 18
[2023-11-27] MEDS ORDERED: NOREPINEPHRINE 0.9 % NACL 8 MG/250 ML BAG IVPB ONE (12:54)
[2023-11-27] MEDS ORDERED: NOREPINEPHRINE BITARTRATE/D5W 8 MG/250 ML BAG IVPB SCH (13:00)
[2023-11-27] MEDS ORDERED: PNEUMOC 20-VAL CONJ-DIP CRM/PF 0.5 ML SYRINGE IM ONE (13:00)
[2023-11-27 14:16] VITALS: PULSE 106
[2023-11-27] MEDS ORDERED: methylPREDNISolone NA SUCC 40 MG/1 ML VIAL IVPB SCH (21:00)
[2023-11-27] MEDS ORDERED: CHLORHEXIDINE GLUCONATE 4% CLEANSER FOR DECOLONIZATION TP SCH (22:00)
[2023-11-27] MEDS ORDERED: MUPIROCIN 2% TOPICAL OINTMENT FOR DECOLONIZATION NS SCH (22:00)
== END 2023-11-27 14:25 | disposition expired | DRG 720 ==
LOC: JER 07:40 → JERBED 10:07 → JICU 13:18
PROVIDERS: ADMIT Internal Medicine Pulmonary Disease; ATTEND Internal Medicine Pulmonary Disease
PROC: 05HN33Z Insertion of Infusion Device into Left Internal Jugular Vein, Percutaneous Approach (ICD-10-PCS; principal; 2023-11-27)
DX: A41.9 Sepsis, unspecified organism (principal); I47.20 Ventricular tachycardia, unspecified; J96.01 Acute respiratory failure with hypoxia; R65.21 Severe sepsis with septic shock; N18.6 End stage renal disease; L89.159 Pressure ulcer of sacral region, unspecified stage; J18.9 Pneumonia, unspecified organism; E66.01 Morbid (severe) obesity due to excess calories; Z68.42 Body mass index [BMI] 45.0-49.9, adult; I95.9 Hypotension, unspecified; D69.6 Thrombocytopenia, unspecified; D64.9 Anemia, unspecified; E87.6 Hypokalemia; F31.9 Bipolar disorder, unspecified; Z99.2 Dependence on renal dialysis; I46.9 Cardiac arrest, cause unspecified; N39.0 Urinary tract infection, site not specified
CPT/HCPCS: 0241U-QW; 36415; 71045-TC-FY; 80053; 81003; 82803; 83605; 83690; 83735; 84484; 85025; 85610; 85730; 86850; 86900; 86901; 87086; 93005; 93010; 99291; J3490